=== PATIENT | male | born 1940 | race Caucasian/White ===

== ENCOUNTER 2016-06-18 18:18 | Emergency (ER) | payer MEDICARE, BC ==
--- OUTSIDE RECORDS SUMMARY | 2016-06-18 19:56 | XMS REPORT | Continuity of Care Document ---
:1940 Author Organization [facility] ([facility]) Address [address] [place] [address] Phone [phone] Care Team Providers Name Role Phone Farooq Hdz Primary Care Provider [phone] Source Comments This disclosure is being made pursuant to the Care Everywhere program, applicable federal and state laws, and may not contain all informaitonavailable regarding this patient.[facility] ([facility]) Active Allergies and Adverse Reactions No Known Allergies Current Medications Prescription Sig. Disp. Refills Start Date End Date Status aspirin 81 mg EC take 1 tablet by 11/26/2013 Active tablet oral route every day benazepril-hydrochlort take 2 tablet by 11/26/2013 Active hiazide 20-25 mg per oral route every tablet day glipiZIDE 5 mg tablet take 0.5 tablet 11/26/2013 Active by ORAL route every day before meals carvedilol 25 mg Take 2 tablets 360 tablet 4 11/25/2014 Active tablet (50 mg total) by mouth 2 times daily DOXAZOSIN 8 mg tablet Take 8 mg by 0 12/01/2014 Active mouth daily. furosemide 40 mg Take 40 mg by 0 03/23/2015 Active tablet mouth daily. potassium chloride 10 10 mEq 3 times 0 03/23/2015 Active mEq XR tablet daily. simvastatin 80 mg Take 40 mg by 0 05/04/2015 Active tablet mouth . cloNIDine HCl 0.2 mg Take 1 tablet 180 tablet 1 01/27/2016 Active tablet (0.2 mg total) by mouth 2 times daily. levothyroxine 50 mcg Take 50 mcg by 04/12/2016 Active tablet mouth daily. famotidine 20 mg TAKE ONE TABLET 0 05/16/2016 Active tablet BY MOUTH AT BEDTIME FOR 10 DAYS azithromycin 500 mg TAKE ONE TABLET 0 05/16/2016 Active tablet BY MOUTH EVERY DAY FOR 5 DAYS predniSONE 20 mg TAKE THREE 0 05/16/2016 Active tablet TABLETS BY MOUTH EVERY DAY FOR 3 DAYS THEN DECREASE TO TAKE TWO TABLETS BY MOUTH EVERY DAY FOR 2 DAYS THEN TAKE ONE TABLET BY MARQUITA dextromethorphan-guaiF Take 10 mL by Active ENesin 10-100 mg/5 mL mouth every 4 syrup hours as needed. gabapentin 300 mg Take 300 mg by Active capsule mouth 3 times daily. multivitamin tablet Take 1 tablet by Active mouth daily. Active Problems Problem Noted Date Aortic stenosis 11/25/2014 Hypertension Overview: Formatting of this note may be different from the original. CARDIOVASCULAR PROCEDURES ECHO/MUGA: Echo (Normal EF, Severe LVH, Mild ) - 12/05/2013 Renal Duplex 11/28/2014: No renal artery stenosis STRESS MPI: Normal EF. No ischemia 09/11/2014 Hyperlipidemia Diabetes Most Recent Encounters Date Type Specialty Providers Description 05/19/2016 Office Visit Heart and Vascular Randa Mcgregor MD Dx: Essential hypertension (Primary Dx) Social History Tobacco Use Types Packs/Day Years Used Date Former Smoker Alcohol Use Drinks/Week oz/Week Comments No Last Filed Vital Signs Vital Sign Reading Time Taken Blood Pressure 192/80 05/19/2016 10:04 AM MICROBIOLOGY MANAGER Pulse 62 05/19/2016 10:04 AM MICROBIOLOGY MANAGER Temperature - - Respiratory Rate - - Height 1.702 m (5' 7") 05/19/2016 10:04 AM MICROBIOLOGY MANAGER Weight 97.523 kg (215 lb) 05/19/2016 10:04 AM MICROBIOLOGY MANAGER Body Mass Index 33.67 05/19/2016 10:04 AM MICROBIOLOGY MANAGER Oxygen Saturation - - Plan of Care Date Type Specialty Providers Description 09/08/2016 Appointment Heart and Vascular Randa Mcgregor MD Chief Comp: Patient [address] [place] [address] Visit [phone] (Fax) Health Maintenance Due Date Last Done Comments Hepatitis B Vaccine (1 of 3 - Primary Series) 1940 Tdap Vaccine 07/01/1951 DIABETIC: Cholesterol 1958 Diabetic: Hdl 1958 DIABETIC: Hemoglobin A1C 1958 Diabetic: Ldl 1958 DIABETIC: Microalbumin 1958 DIABETIC: Triglycerides 1958 Td Vaccine 1958 Colonoscopy 1990 Prostate Cancer Screening 1990 Zoster Vaccine 2000 Pneumococcal Vaccine (1 of 2 - PCV13) 2005 DIABETIC: Foot Exam 11/09/2014 DIABETIC: Retinal Eye Exam 11/09/2014 Influenza Vaccine: Seasonal (#1) 10/19/2015 Results from Last 3 Months Not on file
--- NOTE | 2016-06-18 19:59 | ERNOTE ---
Abdominal HPI - Narrative Date of Service: 06/18/16 - General Chief Complaint: Constipation Time Seen by Provider: 06/18/16 19:45 Source: patient Exam Limitations: no limitations - Immun/Allergies/Home Medications Immunizatons: IMMUNIZATION HX Immunizations Up to Date Yes History of Influenza Vaccine Yes Hx Pneumococcal Vaccination Yes Allergies/Adverse Reactions: Allergies atorvastatin calcium [From Lipitor] Adverse Reaction (Mild, Verified 06/18/16 18 :51) intolerance penicillin G Adverse Reaction (Mild, Verified 06/18/16 18:51) from the 60's, passed out simvastatin [From Zocor] Adverse Reaction (Mild, Verified 06/18/16 18:51) intolerance Home Medications: HOME MEDICATIONS Ascorbic Acid [Vitamin C] 500 mg PO DAILY 09/09/14 [Last Taken Unknown] Benazepril/Hydrochlorothiazide [Benazepril-Hctz 20-25 mg Tab] 2 each PO DAILY [Last Taken 09/15/14 05:30] Blood Sugar Diagnostic, Drum [Accu-Chek Compact] 1 each MC DAILY 09/09/14 [Last Taken Unknown] Carvedilol [Coreg] 25 mg PO BID 09/09/14 [Last Taken 09/15/14 05:30] Doxazosin Mesylate [Cardura] 12 mg PO DAILY 09/09/14 [Last Taken 09/15/14 05:30] Multivit-Min/FA/Lycopene/Lut [Centrum Silver Tablet] 1 each PO DAILY 09/09/14 [ Last Taken Unknown] Simvastatin [Zocor] 40 mg PO DAILY 09/09/14 [Last Taken Unknown] glipiZIDE [Glucotrol] 2.5 mg PO DAILY 09/09/14 [Last Taken Unknown] Enoxaparin Sodium [Lovenox] 40 mg SC Q24H #6 disp.syrin 09/19/14 [Last Taken Unknown] Sennosides/Docusate Sodium [Senokot-S] 2 tab PO HS #60 tablet 09/19/14 [Last Taken Unknown] oxyCODONE HCL/ACETAMINOPHEN [Percocet 5 MG/325 MG] 1 tab PO Q6H PRN #60 tablet 09/19/14 [Last Taken Unknown] Docusate Sodium [Colace] 100 mg PO DAILY #30 cap 06/18/16 [Last Taken Unknown] Polyethylene Glycol 3350 [Miralax] 17 gm PO DAILY #2 bottle 06/18/16 [Last Taken Unknown] - History of Present Illness Narrative: Pt. comes in with c/o constipation with no bowel movement for a week or two pt. is unsure of the exact date as he has had some smear of stool occasionally but no passage of solid stool. Pt. attempted to disimpact himself tonight without success. Pt. denies any SOB, CP, NVD, abd pain, fever, recent illness, or dysuria. Review of Systems - Review of Systems Constitutional: Present: no symptoms reported. Absent: recent illness, fever, chills, weakness, fatigue, malaise EYE: Present: no symptoms reported ENT: Present: no symptoms reported Respiratory: Present: no symptoms reported. Absent: shortness of breath, wheezing Cardiology: Present: no symptoms reported. Absent: chest pain, palpitations, edema Gastrointestinal/Abdominal: Present: constipation. Absent: nausea, vomiting, diarrhea, abdominal pain Genitourinary: Present: no symptoms reported Musculoskeletal: Present: no symptoms reported. Absent: back pain, joint pain Skin: Present: no symptoms reported Neurological: Present: no symptoms reported. Absent: headache, dizziness/light- headedness, numbness, tingling All Other Systems: All systems neg except as marked - Patient's Past Medical History Patient History - Medical: Chronic Pain, Diabetes Type 2, Headache Patient History - Cardiac/Respiratory: Hypertension, Hyperlipidemia Patient History - Cancer: No Hx of Cancer Patient History - Surgical Procedures: Cholecystectomy, Colonoscopy, T & A Patient History - Other: None - Family History Father Family History - Medical: , Diabetes Type 2 Insulin Dependent Mother Family History - Medical: , Diabetes Type 2 Family History - Cardiac/Respiratory: Coronary Heart Disease Brother Family History - Medical: , Diabetes Type 2 Insulin Dependent Family History - Cardiac/Respiratory: Coronary Heart Disease Grandmother-Paternal Family History - Medical: , Diabetes Type 2 Insulin Dependent Grandfather-Paternal Family History - Medical: , Diabetes Type 2 Insulin Dependent - Social History Living Situations: home Abuse History: No History of abuse Psych History: No pertinent hx Smoking Status: Former smoker Alcohol Use: occasionally Drug Use: none - Immunizations Immunizations Up to Date: Yes Hx Pneumococcal Vaccination: Yes History of Influenza Vaccine: Yes Physical Exam - Physical Exam General Appearance: Present: wd/wn, alert, no apparent distress Eye Exam: Normal inspection: bilateral, PERRL: bilateral, EOMI: bilateral Ears, Nose, Throat: Present: normal ENT inspection, normal pharynx Neck: Present: normal inspection, nontender. Absent: lymphadenopathy (R), lymphadenopathy (L) Respiratory: Present: no respiratory distress, normal breath sounds, no accessory muscle use, chest nontender, lungs clear Cardiovascular/Chest: Present: regular rate, rhythm, no murmur, normal peripheral pulses Gastrointestinal/Abdominal: Present: normal bowel sounds, nontender, no organomegaly, distended. Absent: McBurney sign, Obturator sign, Roman sign, Psoas sign, mass, hepatomegaly Back Exam: Present: normal inspection, normal range of motion, no CVA tenderness , no vertebral tenderness Extremity Exam: Present: normal inspection, non-tender, normal range of motion, no edema Neurological Exam: Present: alert, oriented, normal mood/affect, no motor/ sensory deficits, shoe polisher II-XII nml as tested, normal cerebellar test Skin Exam: Present: normal color, warm/dry. Absent: pallor, skin rash ED Progress - Vital Signs Patient's Vital Signs:: I have reviewed the patient's vital signs. Vital Signs: Vital Signs 06/18/16 18:45 Temperature 36.8 C Pulse Rate 55 L Respiratory 18 Rate Blood Pressure 191/84 O2 Sat by Pulse 94 Oximetry - X-Ray X-Ray #1 X-Ray: abdomen Interpretation: Reviewed by me X-ray Comments: stool retention no obstructive bowel pattern noted. - Progress/Reassessment Chief Complaint: Constipation Progress:: Improved Progress Note-Subjective: 06/18/16 22:22 Nurse reports x large BM Departure - Departure Clinical Impression: Constipation Qualifiers: Constipation type: slow transit constipation Qualified Code(s): K59.01 - Slow transit constipation Disposition: Home self-care Condition: Good Instructions: Constipation, Adult, [id number] Additional Instructions: Please follow up with primnary provider in 2-3 days if no improvement. Increase water intake. Prescriptions: Docusate Sodium [Colace] 100 mg PO DAILY #30 cap Polyethylene Glycol 3350 [Miralax] 17 gm PO DAILY #2 bottle
[2016-06-18] MEDS ORDERED: MAGNESIUM CITRATE 300 ML BTL PO ONE (21:03)
[2016-06-18] MEDS ORDERED: MAGNESIUM CITRATE 300 ML BTL ONE (21:06)
[2016-06-18 22:14] VITALS: BP 164/82
== END 2016-06-18 22:34 | disposition home or self-care (01) ==
LOC: ER 18:18
DX: K59.01 Slow transit constipation (principal)

== ENCOUNTER 2017-05-15 06:30 | Day surgery (SDC) | payer MEDICARE, BC ==
[~2017-05-15 06:30] MED LIST: RINGER'S SOLUTION,LACTATED 1,000 ML IV PRN
[2017-05-15] MEDS ORDERED: RINGER'S SOLUTION,LACTATED 1,000 ML IV ONE (07:26)
[2017-05-15] MEDS ORDERED: RINGER'S SOLUTION,LACTATED 1,000 ML IV PRN (08:13)
[2017-05-15 09:16] VITALS: BP 164/61
--- NOTE | 2017-05-15 18:47 | OR ---
Operative Report - Dictated Report Narrative: OPERATIVE REPORT DATE OF OPERATION: 05/15/2017 PREOPERATIVE DIAGNOSIS: No recent dedicated colon studies POSTOPERATIVE DIAGNOSIS: 0.5 cm polyp at 15 cm (pathology pending) OPERATION: Colonoscopy with hot biopsy forceps polypectomy at 15 cm SURGEON: Ra Deal MD ANESTHESIA: CHARLES Maldonado CRNA INDICATIONS FOR PROCEDURE: The patient is a 76-year-old male referred by Dr Hdz. His last colonoscopy was in 2007. There is no family history of colon cancer. FINDINGS: 0.5 cm polyp at 15 cm, otherwise normal colonoscopy to the cecum NARRATIVE OF PROCEDURE: The patient was identified in the holding area, and prior to the administration of anesthetic, a multidisciplinary timeout was observed. With the patient in the left lateral position and after the administration of intravenous sedation, the perineum was inspected. There was no evidence of pilonidal disease or skin breakdown. The external appearance of the anus was normal. Sphincter tone was good. The flexible fiberoptic colonoscope was inserted into the rectum which was insufflated with air. The rectal mucosa and submucosal vascular pattern appeared normal, the prep was seen to be complete. The scope was advanced proximally where at 15 cm a pedunculated 0.5 cm polyp was encountered. This was biopsied with hot biopsy forceps and then thoroughly destroyed with electrocautery. The site was seen to be complete and hemostatic. The scope was advanced through the sigmoid colon , up the descending colon, and around the splenic flexure where the triangular haustral architecture of the transverse colon was seen. The scope was advanced across the transverse colon, around the hepatic flexure to the cecum, where the confluence of tenia and the ileocecal valve were identified. The mucosa at this level appeared normal. The scope was then slowly withdrawn in a circular fashion so that all aspects of colonic mucosa were inspected. The colon was normal in course and caliber. The haustral architecture appeared well preserved throughout with no evidence of external compression. The mucosa and submucosal vascular pattern appeared normal, specifically there was no gross evidence to suggest colitis or inflammatory bowel disease and no AV malformations were seen. No shannan diverticular openings were demonstrated. No additional polyps were encountered. The scope was gradually withdrawn to the level of the rectum. As much insufflated air as possible was removed. The scope was withdrawn from the patient and the procedure terminated. The patient tolerated the anesthetic and procedure well without complication and was transferred back to the ambulatory surgery area awake and in stable condition. The patient remained stable throughout a period of postoperative observation. He denied abdominal discomfort, was able to tolerate by mouth intake, and was up without assistance. I shared the operative findings with the patient and his and he was given copies of the photographs which appear in the medical record. He was discharged home with instructions not to engage in hazardous activity today, but may resume normal activity tomorrow, and advance diet as tolerated. He is to continue those medications as listed in the history and physical exam. I made arrangements to contact him with the biopsy reports and will make additional recommendations for treatment and follow-up based upon those results. Reviewed and electronically signed
== END 2017-05-15 06:31 | disposition home or self-care (01) ==
LOC: AMB 06:30
PROVIDERS: ATTEND Surgery
PROC: 0DBE8ZX Excision of Large Intestine, Via Natural or Artificial Opening Endoscopic, Diagnostic (ICD-10-PCS; principal; 2017-05-15)
DX: Z12.11 Encounter for screening for malignant neoplasm of colon (principal); K63.5 Polyp of colon; E11.9 Type 2 diabetes mellitus without complications; I10 Essential (primary) hypertension; E78.5 Hyperlipidemia, unspecified; E03.9 Hypothyroidism, unspecified; Z87.891 Personal history of nicotine dependence; Z68.34 Body mass index [BMI] 34.0-34.9, adult

== ENCOUNTER 2019-12-08 16:13 | Inpatient (IN) ==
[2019-12-08] MEDS ORDERED: MORPHINE SULFATE 2 MG/ML DISP.SYRIN ONE ×2 (16:27→18:06)
[2019-12-08] MEDS ORDERED: MORPHINE SULFATE 2 MG/ML DISP.SYRIN IV ONE (16:32)
[2019-12-08 16:42] LABS: Hemoglobin 12.4 gm/dL (13.5-18.0); Mean Cell Volume 99.7 fl (78-100); Mean Corpuscular Hemoglobin 32.5 pg (27-31); Mean Corpuscular Hgb Conc 32.6 g/dl (32-36); Mean Platelet Volume 9.5 fl (8-11.3); Neutrophil # 3.7 K/mm3 (1.3-6.0); Neutrophil % 63.8 % (42-75.0); Platelet Count 149 K/mm3 (150-450); Red Blood Count 3.81 M/mm3 (4.7-6.0); Red Cell Distribution Width 12.4 % (11.5-14.0); White Blood Count 5.7 K/mm3 (4.0-10.5)
--- NOTE | 2019-12-08 16:43 | ERNOTE ---
Lower Extremity HPI - Narrative Date of Service: 12/08/19 - General Lower Extremities Pain: hip: right Time Seen by Provider: 12/08/19 16:24 Source: patient, family Exam Limitations: no limitations - Immun/Allergies/Home Medications Immunizations: IMMUNIZATION HX Immunizations Up to Date Yes History of Influenza Vaccine No Hx Pneumococcal Vaccination No Allergies/Adverse Reactions: Allergies Allergy/AdvReac Type Severity Reaction Status Date / Time atorvastatin calcium AdvReac Mild intolerance Verified 10/25/19 09:11 [From Lipitor] penicillin G AdvReac Mild from the Verified 10/25/19 09:11 60's, passed out simvastatin [From Zocor] AdvReac Mild intolerance Verified 10/25/19 09:11 Home Medications: HOME MEDICATIONS Acetaminophen [Tylenol] 325 mg PO Q4H PRN 05/08/17 [Last Taken Unknown] Aspirin [Aspirin EC] 81 mg PO DAILY 05/08/17 [Last Taken 10/17/19] Clonidine HCl 0.2 mg PO DAILY 05/08/17 [Last Taken 10/17/19] carvedilol 25 mg tablet 50 mg PO BID tab 10/02/17 [Last Taken 10/18/19] bqxfycei-eul-OV 0.4 mg-calcium 162 mg-iron 18 tp-ycluiwa-nitrla tablet 1 tab PO DAILY 10/02/17 [Last Taken 10/17/19] mecobalamin (vitamin B12) 1,000 mcg disintegrating tablet,sublingual 1,000 mcg SL DAILY #30 tab 10/16/17 [Last Taken 10/17/19] polyethylene glycol 3350 17 gram/dose oral powder See Rx Instructions .ROUTE .COMPLEX #527 g 01/26/18 [Last Taken 10/17/19] ascorbic acid (vitamin C) 1,000 mg tablet 1 g PO DAILY 10/09/18 [Last Taken 10/17/19] ipratropium 0.5 mg-albuterol 3 mg (2.5 mg base)/3 mL nebulization soln 3 ml IH QID PRN #180 ml 01/11/19 [Last Taken Unknown] benazepril 20 mg-hydrochlorothiazide 25 mg tablet 2 tab PO DAILY #180 tab 03/08/19 [Last Taken Unknown] glipizide 5 mg tablet 2.5 mg PO DAILY #45 tab 06/03/19 [Last Taken 10/17/19] doxazosin 8 mg tablet 8 mg PO DAILY #90 tab 09/09/19 [Last Taken 10/18/19] Furosemide [Lasix] 60 mg PO DAILY 09/23/19 [Last Taken 10/17/19] simvastatin 40 mg tablet 40 mg PO DAILY #90 tab 10/11/19 [Last Taken 10/17/19] benazepril 20 mg tablet 40 mg PO DAILY #2 tab 10/16/19 [Last Taken 10/18/19] Levothyroxine Sodium [Synthroid] 1 tab PO DAILY 10/18/19 [Last Taken 10/17/19] - History of Present Illness Narrative: 71-year-old male presents acutely status post a fall onto his right hip. Patient rates the pain at a 9/10. He has significant difficulty moving his right hip. He denies any other acute concerns he notes he did not hit his head, he remembers the episode well, no significant amnesia patient notes he had no prior hip pain prior to this. 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 Patient otherwise denies any acute illness or sicknesses. He notes he otherwise has no significant chest pain, head injury, shortness of breath. Denies any other acute concerns outside of right hip pain. Patient does note he is concerned that he broke his hip. He denies any other significant radiating symptoms, modifying factors include increased pain with motion, better with rest. Denies any significant distal n umbness or tingling. No significant loss of bowel or bladder function status post fall Review of Systems - Review of Systems Constitutional: Absent: fever, weakness EYE: Absent: blurred vision, double vision ENT: Absent: sore throat Respiratory: Absent: shortness of breath, cough Cardiology: Absent: chest pain, syncope Gastrointestinal/Abdominal: Absent: nausea, vomiting, diarrhea, constipation, abdominal pain Genitourinary: Absent: frequency, hematuria Musculoskeletal: Present: joint pain. Absent: back pain Skin: Absent: rash, lesions Neurological: Absent: headache, dizziness/light-headedness, weakness, numbness, tingling, tremors Endocrine: Present: no symptoms reported Hematologic/Lymphatic: Present: no symptoms reported Psych: Present: no symptoms reported All Other Systems: All systems neg except as marked Medical History (Last Reviewed 12/08/19 @ 17:22 by JACY William) Has received influenza vaccination in current influenza season (Acute) Congestive heart failure (Acute) Medicare annual wellness visit, subsequent (Acute) Systolic murmur (Chronic) Onset Date: Unknown Onychomycosis (Chronic) Onset Date: 03/24/11 Hypothyroidism (Chronic) Onset Date: Unknown Hypertension (Chronic) Onset Date: Unknown Resistant, with improved readings Hyperlipidemia (Chronic) Onset Date: Unknown Headache (Chronic) Onset Date: Unknown Diabetes (Chronic) Onset Date: Unknown Hypertension not at goal (Acute) Onset Date: Unknown Constipation (Acute) Onset Date: Unknown Surgical History: Surgical History (Last Reviewed 12/08/19 @ 17:22 by JACY William) H/O arthroplasty (Resolved) Onset Date: Unknown right knee dr harper replaced S/P laparoscopic cholecystectomy (Resolved) Onset Date: Unknown H/O colonoscopy (Resolved) Onset Date: Unknown 2007 normal, 2018 serrated adenoma recheck [address] richardson laceration repair (Resolved) Onset Date: Unknown 1949's History of temporal artery biopsy (Resolved) Onset Date: Unknown 2003 dr richardson normal Hx of tonsillectomy (Resolved) Onset Date: Unknown 1974 Fatty tumor (Resolved) Onset Date: Unknown 1946 right total knee arthroplasty (Resolved) Onset Date: Unknown History of cataract extraction with lens replacement Family History: Family History (Last Reviewed 12/08/19 @ 17:22 by JACY William) Father Colon cancer Diabetes Bleeding disorder Mother Heart disease Myocardial infarction Brother Diabetes Heart disease Mother Diabetes Heart disease Social History: (Last Reviewed 12/08/19 @ 17:22 by JACY William) Social History: skilled nursing: No Marital status: household members: spouse number of children: 4 current occupational status: 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 Highest education level completed: high school graduate Service: No Tobacco: Smoking Status: Former smoker second hand exposure: No Alcohol: alcohol intake: current Alcohol type: beer alcohol intake frequency: a few times a month Substance Use: substance use type: does not use Dietary Habits: caffeine: Yes during the past year weight has: remained stable Exercise: Physical activity type: none Physical activity functional status: independent ambulation frequency: does not exercise Lelia/Moravian: lelia/islam: Faith Physical Exam - Physical Exam General Appearance: Present: wd/wn, alert, mild distress Head Exam: Present: normal inspection, no evidence of injury Eye Exam: Normal inspection: bilateral, PERRL: bilateral, EOMI: bilateral Ears, Nose, Throat: Present: normal ENT inspection, normal pharynx Neck: Present: normal inspection, nontender Respiratory: Present: no respiratory distress, normal breath sounds, no accessory muscle use, chest nontender, lungs clear Cardiovascular/Chest: Present: regular rate, rhythm, no murmur, normal peripheral pulses Peripheral Pulses: N=norm/S=strong/W=weak/B=bound/A=absent: Radial (R): Normal, Radial (L): Normal, Dorsalis-pedis (R): Normal, Dorsalis-pedis (L): Normal Gastrointestinal/Abdominal: Present: normal bowel sounds, nontender, nondistended, soft Extremity Exam: Present: normal except - - Diffuse right hip pain, no obvious wounds or deformity, right lower extremity in a guarded position Neurological Exam: Present: alert, oriented, normal mood/affect, no motor/sensory deficits Skin Exam: Present: normal color, warm/dry Progress - Date and Time Seen: Date and Time: 12/08/19 16:41 Patient presents status post a fall without head trauma not on any blood thinners outside of an 81 mg aspirin with right hip pain. Patient is acute and lucid without significant signs of head trauma, his GCS is 15. Patient denies any acute symptoms outside of right hip pain. He notes that he was brought by EMS status post fall. At this time will obtain basic labs including CBC, CMP, troponin, EKG, chest x-ray as well as right hip films. EKG was obtained new onset A. fib, previous EKG from 2018 did not reveal A. fib. Patient is acutely stable and not complaining of any significant chest pain, chest pressure, shortness of breath. Family does note that he had a mild concerned he has had shortness of breath the past few days. No other sick contacts per patient or family. We will continue to monitor patient's condition he was given a small dose of IV pain medication in the ED that appeared to make him significantly more comfortable. Will adjust treatment plan accordingly. 12/08/19 17:15 Patient checks x-ray is negative for any significant acute findings, hip x-ray reveals a nondisplaced right intertrochanteric femur fracture. Discussed case with orthopedic on-call provider wishes to admit to medicine for further care tomorrow. Call out to medicine team for further discussion towards admittance. Note patient's need for head CT only recommendation to be due to age. He is on the [place] head CT rules cannot recommend for or against head CT. Discussed this with his family at this time they do not wish to proceed with transferring to a facility with CT capabilities. Patient's GCS remains 15 we will continue to monitor for acute mental status changes. Awaiting callback from the medicine team. 12/08/19 17:20 Discussed this case in detail with the medicine team patient will be admitted to Dr. Hernandez with orthopedics to consult. Patient is acutely stable at this time, no significant lab findings that are concerning. They can continue to monitor patient's mental status. He is alert and oriented at this time without significant impairment. Plan to proceed with an inpatient admission for further care. - Results and Orders Patient's Lab Results:: I have reviewed the patient's lab results. Results and Orders: Laboratory Tests 12/08/19 12/08/19 12/08/19 16:35 16:35 16:35 WBC 5.7 Hgb 12.4 L PT 11.4 H INR (Anticoag Therapy) 1.16 H PTT (Dannielle) 24.7 Creatinine 1.18 Troponin I 0.031 - Vital Signs Patient's Vital Signs:: I have reviewed the patient's vital signs. Vital Signs: Vital Signs 12/08/19 16:14 Temperature 36.2 C Pulse Rate 74 Respiratory Rate 17 Blood Pressure 174/106 H O2 Sat by Pulse Oximetry 100 - EKG EKG #1 EKG: atrial fibrillation EKG read: Reviewed by me EKG Comments: Patient appears to be in atrial fibrillation, no significant ST elevation at this time, mild peaking T waves in V3 and V4, possible age-indeterminate atrial septal myocardial infarction, compared to previous EKG atrial fibrillation is no significant change, EKGs were reviewed with physician on staff - X-Ray X-Ray #1 X-Ray: chest Interpretation: Reviewed by me X-ray Comments: Significant cardiomegaly on x-ray, no significant deviation of the trachea, no significant pulmonary congestion, no acute rib fractures X-Ray #2 X-Ray: hip Interpretation: Reviewed by me X-ray Comments: Nondisplaced intertrochanteric right femur fracture - Progress/Reassessment Chief Complaint: Hip Pain/Injury Plan - Plan Plan: Plan to admit for further care with medicine team and consultation orthopedic Departure Clinical Impression: Closed right hip fracture Qualifiers: Encounter type: initial encounter Qualified Code(s): S72.001A - Fracture of unspecified part of neck of right femur, initial encounter for closed fracture - Departure Disposition: Still a patient Condition: Stable Referrals: Farooq Hdz MD [Primary Care Provider] -
[2019-12-08 16:51] LABS: Prothrombin Time (Patient) 11.4 Seconds (9.1-10.7)
[2019-12-08 16:58] LABS: Albumin * 3.8 gm/dl (3.4-5.0); Anion Gap 11.7 mmol/L (6.8-13.8); BUN/Creatinine Ratio 25.4 (9.0-21.6); Bilirubin, Total 0.7 mg/dL (0.0-1.1); Ca. Corrected For Albumin 8.8 mg/dL (8.4-10.2); Carbon Dioxide 28.1 mmol/L (24-32.6); Potassium 3.8 mmol/L (3.4-4.6); Total Protein 7.1 gm/dL (6.2-8.2)
[2019-12-08 17:02] LABS: Troponin I 0.031 ng/mL (0.00-0.10)
[2019-12-08 17:07] LABS: INR 1.16 INR (0.92-1.08); Partial Thrombolplastin Time 24.7 Seconds (24-32)
[2019-12-08 17:16] LABS: Urine Appearance Clear (CLEAR); Urine Bacteria None Seen; Urine Bilirubin Negative (NEGATIVE); Urine Blood Negative /ul (NEGATIVE); Urine Color Yellow; Urine Ketone Negative (NEGATIVE); Urine Nitrite Negative (NEGATIVE); Urine Protein Negative (NEGATIVE); Urine RBC None Seen /hpf (0-5); Urine Specific Gravity 1.025 SP.GR. (1.005-1.030); Urine Urobilinogen Normal (NORMAL); Urine WBC None Seen /hpf (0-5)
[2019-12-08] MEDS ORDERED: MORPHINE SULFATE 2 MG/ML DISP.SYRIN IM ONE (18:07)
[2019-12-08] MEDS ORDERED: hydrALAZINE HCL 20 MG/ML VIAL IV PRN (19:15)
[2019-12-08] MEDS: MORPHINE SULFATE 4 MG/ML SYRG IV PRN ×2 (19:31→20:47)
[2019-12-08] MEDS: NORMAL SALINE 1,000 ML IV PRN (19:33)
--- NOTE | 2019-12-08 19:45 | HP ---
Chief Complaint - Chief Complaint Date of Service: 12/08/19 Time of Service: 19:36 Chief Complaint: right hip pain History of Present Illness: 79-year-old male with history of hypertension and diabetes admitted to the hospital after mechanical fall at home which resulted in a right minimally distracted but not displaced commuted intertrochanteric hip fracture. Patient denies hitting his head. Patient states he felt his chair to hold his dog which resulted in the hip injury. Patient's vital signs aside from an elevated blood pressure were stable in the ER. Lab work showed him to be slightly anemic with a hemoglobin of 12.4 hematocrit 38.0. His skin panel was fairly benign. Urine negative for infection. Cover test negative in the ER. Of note patient was found to be in atrial fibrillation with EKG, patient denies history of arrh ythmia. He has a heart doctor who is helped with his blood pressure but otherwise he is never been treated for atrial fibrillation. He is not on any anticoagulants which would not be started as time due to his upcoming surgery. His heart rate is controlled with a beta-adam. Other than the hip pain patient feels well and is ready for surgery. Patient is currently n.p.o. and will be until after surgery. Patient has fluids running at this time. Patient was admitted to the floor as an inpatient for his upcoming right hip surgery. Medical History (Last Reviewed 12/08/19 @ 19:13 by Kolby Grider RN) Has received influenza vaccination in current influenza season (Acute) Congestive heart failure (Acute) Medicare annual wellness visit, subsequent (Acute) Systolic murmur (Chronic) Onset Date: Unknown Onychomycosis (Chronic) Onset Date: 03/24/11 Hypothyroidism (Chronic) Onset Date: Unknown Hypertension (Chronic) Onset Date: Unknown Resistant, with improved readings Hyperlipidemia (Chronic) Onset Date: Unknown Headache (Chronic) Onset Date: Unknown Diabetes (Chronic) Onset Date: Unknown Hypertension not at goal (Acute) Onset Date: Unknown Constipation (Acute) Onset Date: Unknown Surgical History: Surgical History (Last Reviewed 12/08/19 @ 19:13 by Kolby Grider RN) H/O arthroplasty (Resolved) Onset Date: Unknown right knee dr taveras replaced S/P laparoscopic cholecystectomy (Resolved) Onset Date: Unknown H/O colonoscopy (Resolved) Onset Date: Unknown 2007 normal, 2018 serrated adenoma recheck [address] richardson laceration repair (Resolved) Onset Date: Unknown 1949' History of temporal artery biopsy (Resolved) Onset Date: Unknown 2003 dr richardson normal Hx of tonsillectomy (Resolved) Onset Date: Unknown 1974 Fatty tumor (Resolved) Onset Date: Unknown 1946 right total knee arthroplasty (Resolved) Onset Date: Unknown History of cataract extraction with lens replacement Family History: Family History (Last Reviewed 12/08/19 @ 19:13 by Kolby Grider RN) Father Colon cancer Diabetes Bleeding disorder Mother Heart disease Myocardial infarction Brother Diabetes Heart disease Mother Diabetes Heart disease Social History: (Last Reviewed 12/08/19 @ 19:13 by Kolby Grider RN) Social History: snf: No Marital status: household members: spouse number of children: 4 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 Highest education level completed: high school graduate Service: No Tobacco: Smoking Status: Former smoker second hand exposure: No Alcohol: alcohol intake: current Alcohol type: beer alcohol intake frequency: a few times a month Substance Use: substance use type: does not use Dietary Habits: caffeine: Yes during the past year weight has: remained stable Exercise: Physical activity type: none Physical activity functional status: independent ambulation frequency: does not exercise Lelia/Rastafari: lelia/hindu: Synagogue Review Of Systems (GEN) - Review of Systems Generalized/Overall Review: Absent: Weakness, Chills, Fever EENTM: Present: No Symptoms Reported Respiratory: Present: No Symptoms Reported Cardiac: Present: No Symptoms Reported Abdominal: Present: No Symptoms Reported Musculoskeletal: Present: Joint Pain - Right hip Neurological: Absent: Numbness, Tingling Skin: Present: No Symptoms Reported Endocrine: Present: No Symptoms Reported Immunizations: IMMUNIZATION HX Immunizations Up to Date Yes History of Influenza Vaccine No Hx Pneumococcal Vaccination No Allergies/Adverse Reactions: Allergies Allergy/AdvReac Type Severity Reaction Status Date / Time atorvastatin calcium AdvReac Mild intolerance Verified 12/08/19 19:13 [From Lipitor] simvastatin [From Zocor] AdvReac Mild intolerance Verified 12/08/19 19:13 Home Medications: HOME MEDICATIONS Acetaminophen [Tylenol] 325 mg PO Q4H PRN 05/08/17 [Last Taken Unknown] Aspirin [Aspirin EC] 81 mg PO DAILY 05/08/17 [Last Taken 10/17/19] Clonidine HCl 0.2 mg PO DAILY 05/08/17 [Last Taken 10/17/19] carvedilol 25 mg tablet 50 mg PO BID tab 10/02/17 [Last Taken 10/18/19] lnauapkf-doy-LQ 0.4 mg-calcium 162 mg-iron 18 ex-sosvvsr-eeympn tablet 1 tab PO DAILY 10/02/17 [Last Taken 10/17/19] mecobalamin (vitamin B12) 1,000 mcg disintegrating tablet,sublingual 1,000 mcg SL DAILY #30 tab 10/16/17 [Last Taken 10/17/19] polyethylene glycol 3350 17 gram/dose oral powder See Rx Instructions .ROUTE .COMPLEX #527 g 01/26/18 [Last Taken 10/17/19] ascorbic acid (vitamin C) 1,000 mg tablet 1 g PO DAILY 10/09/18 [Last Taken 10/17/19] ipratropium 0.5 mg-albuterol 3 mg (2.5 mg base)/3 mL nebulization soln 3 ml IH QID PRN #180 ml 01/11/19 [Last Taken Unknown] benazepril 20 mg-hydrochlorothiazide 25 mg tablet 2 tab PO DAILY #180 tab 03/08/19 [Last Taken Unknown] glipizide 5 mg tablet 2.5 mg PO DAILY #45 tab 06/03/19 [Last Taken 10/17/19] doxazosin 8 mg tablet 8 mg PO DAILY #90 tab 09/09/19 [Last Taken 10/18/19] Furosemide [Lasix] 60 mg PO DAILY 09/23/19 [Last Taken 10/17/19] simvastatin 40 mg tablet 40 mg PO DAILY #90 tab 10/11/19 [Last Taken 10/17/19] benazepril 20 mg tablet 40 mg PO DAILY #2 tab 10/16/19 [Last Taken 10/18/19] Levothyroxine Sodium [Synthroid] 1 tab PO DAILY 10/18/19 [Last Taken 10/17/19] Exam - Exam Vital Signs: Vital Signs - Last Taken Temp 36.2 C 12/08/19 16:14 Pulse 98 12/08/19 19:32 Resp 15 12/08/19 18:59 BP 174/99 H 12/08/19 19:32 Pulse Ox 93 12/08/19 18:59 Constitutional: Present: Alert, Oriented x3, Well developed, Elderly ENT Exam: Present: hearing grossly normal Eye Exam: bilateral eye: normal inspection, EOMI Neck: Present: non-tender, supple Respiratory: Present: lungs clear, normal breath sounds Cardiovascular/Chest: Present: regular rate, rhythm, systolic murmur Peripheral Pulses: dorsalis-pedis (R): 2+, dorsalis-pedis (L): 2+ Abdomen: Present: Normal bowel sounds, soft, nontender Extremity: Absent: normal range of motion - pain with minimal motion of right hip. normal cap refill and sensory Skin Exam: Present: normal color, warm/dry Appearance: Present: appropriate appearance, appropriate insight Eye contact: Present: cooperative, good eye contact Thoughts: Present: normal thought pattern, normal mood /affect Diagnostic Studies: Abnormal Lab Results 12/08/19 12/08/19 12/08/19 Range/Units 16:35 16:35 16:35 RBC 3.81 L (4.7-6.0) M/mm3 Hgb 12.4 L (13.5-18.0) gm/dL Hct 38.0 L (42.0-52.0) % MCH 32.5 H (27-31) pg Plt Count 149 L (150-450) K/mm3 Immature Gran % (Auto) 0.50 H (0.001-0.429) % Monocytes % 11.1 H (0.0-9) % Eosinophils % 3.7 H (0.0-3.0) % Lymphocytes # 1.17 L (1.5-3.5) k/mm3 PT 11.4 H (9.1-10.7) Seconds INR (Anticoag Therapy) 1.16 H (0.92-1.08) INR BUN 30 H (6-23) mg/dL BUN/Creatinine Ratio 25.4 H (9.0-21.6) Random Glucose 192 H (70-110) mg/dL Laboratory Results WBC 5.7 K/mm3 (4.0-10.5) 12/08/19 16:35 RBC 3.81 M/mm3 (4.7-6.0) L 12/08/19 16:35 Hgb 12.4 gm/dL (13.5-18.0) L 12/08/19 16:35 Hct 38.0 % (42.0-52.0) L 12/08/19 16:35 MCV 99.7 fl (78-100) 12/08/19 16:35 MCH 32.5 pg (27-31) H 12/08/19 16:35 MCHC 32.6 g/dl (32-36) 12/08/19 16:35 RDW 12.4 % (11.5-14.0) 12/08/19 16:35 Plt Count 149 K/mm3 (150-450) L 12/08/19 16:35 MPV 9.5 fl (8-11.3) 12/08/19 16:35 Immature Gran % (Auto) 0.50 % (0.001-0.429) H 12/08/19 16:35 Immature Gran # (Auto) 0.03 K/mm3 (0.000-0.0310) 12/08/19 16:35 Neutrophils % 63.8 % (42-75.0) 12/08/19 16:35 Lymphocytes % 20.4 % (20-51) 12/08/19 16:35 Monocytes % 11.1 % (0.0-9) H 12/08/19 16:35 Eosinophils % 3.7 % (0.0-3.0) H 12/08/19 16:35 Basophils % 0.5 % (0.0-1.0) 12/08/19 16:35 Nucleated RBC % 0.0 k/mm3 (0-1) 12/08/19 16:35 Neutrophils # 3.7 K/mm3 (1.3-6.0) 12/08/19 16:35 Lymphocytes # 1.17 k/mm3 (1.5-3.5) L 12/08/19 16:35 Monocytes # 0.6 k/mm3 (0.0-1.0) 12/08/19 16:35 Eosinophils # 0.2 k/mm3 (0.0-0.7) 12/08/19 16:35 Absolute Basophils 0.0 k/mm3 (0.0-0.1) 12/08/19 16:35 PT 11.4 Seconds (9.1-10.7) H 12/08/19 16:35 INR (Anticoag Therapy) 1.16 INR (0.92-1.08) H 12/08/19 16:35 PTT (Dannielle) 24.7 Seconds (24-32) 12/08/19 16:35 Sodium 139 mmol/L (132-142) 12/08/19 16:35 Plasma Sodium 140 mmol/L (130-142) 12/08/19 16:35 Potassium 3.8 mmol/L (3.4-4.6) 12/08/19 16:35 Chloride 103 mmol/L (97-106) 12/08/19 16:35 Carbon Dioxide 28.1 mmol/L (24-32.6) 12/08/19 16:35 Anion Gap 11.7 mmol/L (6.8-13.8) 12/08/19 16:35 BUN 30 mg/dL (6-23) H 12/08/19 16:35 Creatinine 1.18 mg/dL (0.4-1.4) 12/08/19 16:35 Est GFR (Non-Af Amer) 63 mL/min (60-130) 12/08/19 16:35 BUN/Creatinine Ratio 25.4 (9.0-21.6) H 12/08/19 16:35 Random Glucose 192 mg/dL (70-110) H 12/08/19 16:35 Calcium 9.0 mg/dL (7.9-10.9) 12/08/19 16:35 Calcium Adj for Albumin 8.8 mg/dL (8.4-10.2) 12/08/19 16:35 Total Bilirubin 0.7 mg/dL (0.0-1.1) 12/08/19 16:35 AST 18 U/L (0-48) 12/08/19 16:35 ALT 32 U/L (19-67) 12/08/19 16:35 Alkaline Phosphatase 79 U/L (50-170) 12/08/19 16:35 Troponin I 0.031 ng/mL (0.00-0.10) 12/08/19 16:35 Total Protein 7.1 gm/dL (6.2-8.2) 12/08/19 16:35 Albumin 3.8 gm/dl (3.4-5.0) 12/08/19 16:35 Urine Color Yellow 12/08/19 17:11 Urine Appearance Clear (CLEAR) 12/08/19 17:11 Urine pH 6.0 pH (5.0-7.0) 12/08/19 17:11 Ur Specific [place] 1.025 SP.GR. (1.005-1.030) 12/08/19 17:11 Urine Protein Negative mg/dL (NEGATIVE) 12/08/19 17:11 Urine Glucose (UA) Negative mg/dL (NEGATIVE) 12/08/19 17:11 Urine Ketones Negative mg/dL (NEGATIVE) 12/08/19 17:11 Urine Blood Negative /ul (NEGATIVE) 12/08/19 17:11 Urine Nitrate Negative (NEGATIVE) 12/08/19 17:11 Urine Bilirubin Negative mg/dl (NEGATIVE) 12/08/19 17:11 Urine Urobilinogen Normal EU/dl (NORMAL) 12/08/19 17:11 Ur Leukocyte Esterase Negative /ul (NEGATIVE) 12/08/19 17:11 Urine RBC None seen /hpf (0-5) 12/08/19 17:11 Urine WBC None seen /hpf (0-5) 12/08/19 17:11 Ur Epithelial Cells None seen /hpf (0-5) 12/08/19 17:11 Urine Bacteria None seen (NONE) 12/08/19 17:11 Urine Culture Comments No culture indicated 12/08/19 17:11 SARS-CoV-2 (PCR) Not detected (NotDetected) 12/08/19 17:22 Assessment/Plan - Narrative Narrative: 79-year-old male admitted to the hospital after mechanical fall resulting in right intertrochanteric hip fracture. Patient undergo surgery tomorrow with Dr. Taveras. Patient made n.p.o., normal saline currently running at 125 an hour. Patient's lab work appropriate. Patient does have atrial fibrillation, how new it is is unknown but we have no record of your prior to today. Heart rate is controlled with beta-adam. Patient will be anticoagulated following his surgery to address this for long-term then. Blood pressure slightly elevated, patient has hydralazine ordered for systolic greater than 170. Morphine ordered for pain management. SCDs for DVT prophylaxis. Sugars to be monitored before meals and at bedtime. Vital signs ordered. Patient cleared for surgery from medical standpoint. Nurse to call questions or concerns. - Assessment/Plan (1) Closed right hip fracture Problem: Acute Qualifiers: Encounter type: initial encounter Qualified Code(s): S72.001A - Fracture of unspecified part of neck of right femur, initial encounter for closed fracture (2) Systolic murmur Problem: Chronic (3) Hypertension Problem: Chronic Qualifiers: (4) Diabetes Problem: Chronic Qualifiers:
[2019-12-08] MEDS: INSULIN LISPRO 100 UNITS/ML VIAL SC SCH (20:22)
[2019-12-08] MEDS: MORPHINE SULFATE 2 MG/ML DISP.SYRIN IV PRN (22:44)
[2019-12-09] MEDS: MORPHINE SULFATE 2 MG/ML DISP.SYRIN IV PRN ×3 (01:55→06:44)
[2019-12-09] MEDS: NORMAL SALINE 1,000 ML IV PRN (03:36)
[2019-12-09] MEDS: INSULIN LISPRO 100 UNITS/ML VIAL SC SCH ×4 (07:27→20:26)
[2019-12-09] MEDS ORDERED: ceFAZolin SODIUM 2 GM in DEXTROSE 5 % IN WATER 50 ML IV PRN ×2 (08:13)
--- NOTE | 2019-12-09 08:19 | CONS ---
HPI - General Date of Service: 12/09/19 Narrative: Michael reports he was in his garage when he sustained a ground-level fall. Patient was unable to get up and ambulate due to severe pain in the right hip. He was brought into the emergency department [facility] and found to have a intertrochanteric hip fracture. He is admitted to Dr. Hernandez's medical service. At this time he reports pain in the right inguinal area but no other complaints of pain. - History of Present Illness Timing/Duration: 24 hours Allergies/Adverse Reactions: Allergies atorvastatin calcium [From Lipitor] Adverse Reaction (Mild, Verified 12/08/19 19:13) intolerance simvastatin [From Zocor] Adverse Reaction (Mild, Verified 12/08/19 19:13) intolerance Home Medications: Home Medications Medication Instructions Recorded Last Taken Acetaminophen [Tylenol] 325 mg PO Q4H PRN 05/08/17 Unknown Aspirin [Aspirin EC] 81 mg PO DAILY 05/08/17 10/17/19 Clonidine HCl 0.2 mg PO DAILY 05/08/17 10/17/19 carvedilol 25 mg tablet 50 mg PO BID tab 10/02/17 10/18/19 qrssesau-fiw-PR 0.4 mg-calcium 162 1 tab PO DAILY 10/02/17 10/17/19 mg-iron 18 vc-ufjcamg-zfeutf tablet mecobalamin (vitamin B12) 1,000 1,000 mcg SL DAILY #30 tab 10/16/17 10/17/19 mcg disintegrating tablet,sublingual polyethylene glycol 3350 17 See Rx Instructions .ROUTE 01/26/18 10/17/19 gram/dose oral powder .COMPLEX #527 g ascorbic acid (vitamin C) 1,000 mg 1 g PO DAILY 10/09/18 10/17/19 tablet ipratropium 0.5 mg-albuterol 3 mg 3 ml IH QID PRN #180 ml 01/11/19 Unknown (2.5 mg base)/3 mL nebulization soln benazepril 20 2 tab PO DAILY #180 tab 03/08/19 Unknown mg-hydrochlorothiazide 25 mg tablet glipizide 5 mg tablet 2.5 mg PO DAILY #45 tab 06/03/19 10/17/19 doxazosin 8 mg tablet 8 mg PO DAILY #90 tab 09/09/19 10/18/19 Furosemide [Lasix] 60 mg PO DAILY 09/23/19 10/17/19 simvastatin 40 mg tablet 40 mg PO DAILY #90 tab 10/11/19 10/17/19 Levothyroxine Sodium [Synthroid] 1 tab PO DAILY 10/18/19 10/17/19 Procedures Administration of wqqcbdcwjw-bzqunqu-bxvwrwmsq, combined (07/24/10) Biopsy of blood vessel (09/30/03) Closure of skin and subcutaneous tissue of other sites (07/24/10) Colonoscopy (05/03/07) Total knee replacement (09/15/14) Medications - Medications Current Medications: Current Medications Hydralazine HCl (Apresoline) 10 mg IV Q4H PRN PRN Reason: Hypertension Stop: 01/07/20 19:16 Last Admin: 12/08/19 19:32 Dose: 10 mg Documented by: Sodium Chloride (Sodium Chloride 0.9%) 1,000 mls @ 125 mls/hr IV .Q8H PRN PRN Reason: HYDRATION Stop: 01/07/20 19:27 Last Admin: 12/09/19 03:36 Dose: 125 mls/hr Documented by: Insulin Human Lispro (Humalog) 0 units SC [facility]; Protocol Stop: 01/07/20 21:01 Last Admin: 12/09/19 07:27 Dose: Not Given Documented by: Morphine Sulfate (Morphine Sulfate) 2 mg IV Q1H PRN PRN Reason: Pain Stop: 01/07/20 20:55 Last Admin: 12/09/19 06:44 Dose: 2 mg Documented by: Physical Examination - Exam Narrative: Michael is currently lying in bed. He is in no acute distress. He answers to questions appropriately. He is lying with right leg externally rotated and shortened. He reports pain with palpation in the inguinal area on the right side. He reports no knee pain. Reports sensation intact light touch in the right lower extremity. He is able to plantarflex and dorsiflex the right ankle. He is palpable posterior tibial pulse x-rays reviewed show minimally displaced right intertrochanteric hip fracture. Vital Signs: Vital Signs - Last Taken Temp 37.1 C 12/09/19 06:36 Pulse 94 12/09/19 06:36 Resp 16 12/09/19 06:36 BP 162/86 H 12/09/19 06:36 Pulse Ox 93 12/09/19 06:36 O2 Oxygen Delivery Method Room Air - Results and Findings: Lab/Microbiology results last 24 hrs: Abnormal/Pending Laboratory Last 24 HRS 12/08/19 12/08/19 12/08/19 16:35 16:35 16:35 RBC 3.81 L Hgb 12.4 L Hct 38.0 L MCH 32.5 H Plt Count 149 L Immature Gran % (Auto) 0.50 H Monocytes % 11.1 H Eosinophils % 3.7 H Lymphocytes # 1.17 L PT 11.4 H INR (Anticoag Therapy) 1.16 H BUN 30 H BUN/Creatinine Ratio 25.4 H Random Glucose 192 H - Assessments/Findings (1) Closed right hip fracture Diagnosis(s): Closed reduction internal fixation with cephalo-medullary implant discussed with patient. Risks of surgery discussed. Will obtain consents. Patient have 2 g of Ancef IV preop. Problem: Acute
[2019-12-09] MEDS ORDERED: MORPHINE SULFATE 4 MG/ML SYRG IV PRN (08:33)
--- NOTE | 2019-12-09 11:48 | ANES ---
Anesthesia Pre Procedure Eval Vitals/Labs: Last Vital Signs Temp 37.2 C 12/09/19 10:08 Pulse 90 12/09/19 10:08 Resp 13 12/09/19 10:08 BP 132/85 12/09/19 10:08 Pulse Ox 91 L 12/09/19 10:08 HOME MEDICATIONS Acetaminophen [Tylenol] 325 mg PO Q4H PRN 05/08/17 [Last Taken Unknown] Aspirin [Aspirin EC] 81 mg PO DAILY 05/08/17 [Last Taken 10/17/19] Clonidine HCl 0.2 mg PO DAILY 05/08/17 [Last Taken 10/17/19] carvedilol 25 mg tablet 50 mg PO BID tab 10/02/17 [Last Taken 10/18/19] dudkbrmx-tzz-CN 0.4 mg-calcium 162 mg-iron 18 yr-peiycvv-sfeauf tablet 1 tab PO DAILY 10/02/17 [Last Taken 10/17/19] mecobalamin (vitamin B12) 1,000 mcg disintegrating tablet,sublingual 1,000 mcg SL DAILY #30 tab 10/16/17 [Last Taken 10/17/19] polyethylene glycol 3350 17 gram/dose oral powder See Rx Instructions .ROUTE .COMPLEX #527 g 01/26/18 [Last Taken 10/17/19] ascorbic acid (vitamin C) 1,000 mg tablet 1 g PO DAILY 10/09/18 [Last Taken 10/17/19] ipratropium 0.5 mg-albuterol 3 mg (2.5 mg base)/3 mL nebulization soln 3 ml IH QID PRN #180 ml 01/11/19 [Last Taken Unknown] benazepril 20 mg-hydrochlorothiazide 25 mg tablet 2 tab PO DAILY #180 tab 03/08/19 [Last Taken Unknown] glipizide 5 mg tablet 2.5 mg PO DAILY #45 tab 06/03/19 [Last Taken 10/17/19] doxazosin 8 mg tablet 8 mg PO DAILY #90 tab 09/09/19 [Last Taken 10/18/19] Furosemide [Lasix] 60 mg PO DAILY 09/23/19 [Last Taken 10/17/19] simvastatin 40 mg tablet 40 mg PO DAILY #90 tab 10/11/19 [Last Taken 10/17/19] Levothyroxine Sodium [Synthroid] 1 tab PO DAILY 10/18/19 [Last Taken 10/17/19] Allergies/Adverse Reactions: Allergies Allergy/AdvReac Type Severity Reaction Status Date / Time atorvastatin calcium AdvReac Mild intolerance Verified 12/08/19 19:13 [From Lipitor] simvastatin [From Zocor] AdvReac Mild intolerance Verified 12/08/19 19:13 - Planned Procedure Planned Procedure: R HIP FRACTURE Medication List Reviewed:: Yes Allergies Verified: Yes Medical History (Last Reviewed 12/09/19 @ 11:43 by Abhinav Jay CRNA) Has received influenza vaccination in current influenza season (Acute) Congestive heart failure (Acute) Medicare annual wellness visit, subsequent (Acute) Systolic murmur (Chronic) Onset Date: Unknown Onychomycosis (Chronic) Onset Date: 03/24/11 Hypothyroidism (Chronic) Onset Date: Unknown Hypertension (Chronic) Onset Date: Unknown Resistant, with improved readings Hyperlipidemia (Chronic) Onset Date: Unknown Headache (Chronic) Onset Date: Unknown Diabetes (Chronic) Onset Date: Unknown Hypertension not at goal (Acute) Onset Date: Unknown Constipation (Acute) Onset Date: Unknown Surgical History (Last Reviewed 12/09/19 @ 11:43 by Abhinav Jay CRNA) H/O arthroplasty (Resolved) Onset Date: Unknown right knee dr harper replaced S/P laparoscopic cholecystectomy (Resolved) Onset Date: Unknown H/O colonoscopy (Resolved) Onset Date: Unknown 2007 normal, 2018 serrated adenoma recheck [address] richardson laceration repair (Resolved) Onset Date: Unknown 1949's History of temporal artery biopsy (Resolved) Onset Date: Unknown 2003 dr richardson normal Hx of tonsillectomy (Resolved) Onset Date: Unknown 1974 Fatty tumor (Resolved) Onset Date: Unknown 1946 right total knee arthroplasty (Resolved) Onset Date: Unknown History of cataract extraction with lens replacement Family History (Last Reviewed 12/09/19 @ 11:43 by Abhinav Jay CRNA) Father Colon cancer Diabetes Bleeding disorder Mother Heart disease Myocardial infarction Brother Diabetes Heart disease Mother Diabetes Heart disease - Family Anesthesia History Family History:: no untoward family reactions to anesthesia, no familial bleeding tendencies, no family history of clotting disorders, no family history of premature - Airway/Neck/Teeth Within Normal Limits:: Yes Teeth Condition: intact Neck Exam: full range of motion Mallampatti Score: 2 Thyromental (T-M) distance: > 6 cm Mandibulo Hyoid distance: > 3 cm - Respiratory Respiratory Physical: rhonchi Smoking Status: Former smoker Sleep Apnea currently treated: No Sleep Apnea by current assessment: No - Cardiovascular Cardiac History: hypertension, hyperlipidemia - distant, pipe Tolerate Activity: Poor Heart Sounds: S1 & S2, Regular - Gastrointestinal NPO since: 2400 - Anesthesia Assessment and Plan ASA Class: PS, III Anesthesia Type Plan: Spinal - INR 12.16
[2019-12-09] MEDS ORDERED: ceFAZolin SODIUM 1 GM VIAL ONE (12:18)
[2019-12-09] MEDS ORDERED: LIDOCAINE HCL 20 ML VIAL ONE (12:35)
[2019-12-09] MEDS ORDERED: fentaNYL CITRATE/PF 50 MCG/ML AMPUL ONE (12:35)
[2019-12-09] MEDS ORDERED: PROPOFOL VIAL IV ONE (12:36)
[2019-12-09] MEDS ORDERED: ONDANSETRON HCL/PF 2 MG/ML VIAL ONE (12:36)
[2019-12-09] MEDS ORDERED: ACETAMINOPHEN 500 MG TABLET PO PRN (14:12)
[2019-12-09] MEDS ORDERED: MAG HYDROX/ALUMINUM HYD/SIMETH 30 ML UDC PO PRN (14:12)
[2019-12-09] MEDS ORDERED: MAGNESIUM HYDROXIDE 30 ML UDC PO PRN (14:12)
[2019-12-09] MEDS ORDERED: ONDANSETRON HCL/PF 2 MG/ML VIAL IV PRN (14:12)
--- NOTE | 2019-12-09 14:12 | OR ---
Operative Report - Dictated Report Narrative: Date: 12/09/2019 Surgeon: Adeel Taveras M.D. Product Evangelist: Matthew Payne PA-C (provided an essential set of skilled educated handset assisted with transfer, positioning, prepping, draping, placement of instruments, insertion of implants, irrigation, closure wounds, and placement of dressings all which could not be performed by the available surgical crew) Preoperative diagnosis: Closed right intertrochanteric femur fracture Postoperative diagnosis: Closed right intertrochanteric femur fracture Operations and procedures: 1. Closed reduction, cephalo-medullary fixation right intertrochanteric femur fracture 2. Intraoperative interpretation of radiographs Anesthesia: Spinal Specimens: None Estimated blood loss: 50 milliliters Retained implants: [employer] Trigen InterTAN 130 degree size 11.5 mm by 20 centimeter nail with 115 millimeter lag screw and 110 millimeter compression screw, with distal locking screw Complications: None Indications for procedure: Mr. Sanchez is a 79-year-old gentleman who injured the right leg after ground- level fall. They were admitted to the hospital after being evaluated in the emergency department. Once the medical provider felt that they were stable for surgical treatment, the risks and benefits alternatives were discussed. The risks of , blood clots, bleeding, infection, nerve/tendon/blood vessel injury, malunion, nonunion, failure of implants, painful implants, arthrosis, and need for additional procedures were discussed. The extremity was marked and consent was obtained on the floor. Procedure: After marking the operative extremity on the floor, the patient was taken to the operating room. A timeout was performed. IV antibiotics consisting of Ancef were administered. A spinal anesthetic was induced by anesthesia, and the patient was then placed onto a fracture table with a well-padded perineal post. The nonoperative leg was placed in a well-padded traction boot in slight extension without any traction with an SCD on the leg. The operative leg was placed in a well-padded traction boot. Longitudinal traction, internal rotation, and flexion were utilized in order to reduce the fracture. Preliminary images were attained utilizing C-arm in both the AP and lateral views. This confirmed that we had obtained adequate visualization of the fracture as well as reduction. Next the hip was then prepped and draped in a standard sterile fashion. Next the guidewire was placed percutaneously proximal to the greater trochanter to denise a starting point at the tip of the greater trochanter centered on the lateral view. This was passed down to the level below the lesser trochanter. A scalpel was utilized in order to dissect down to the greater trochanter in order to place the soft tissue protector down to bone. The entry drill was then placed down the proximal femur to the level of the lesser trochanter. The proper size nail was then selected and impacted into place. The outrigger was utilized in order to confirm the appropriate depth of the nail. Using the alignment device on the outrigger, an incision was made over the lateral femur. Sharp dissection was carried through the iliotibial band down to the proximal femur. The guidewire was placed into the femoral head in a center- center position on AP and lateral views. The tip-apex distance of less than 25 mm combined was obtained. Once we felt that we had placed a guidewire in the appropriate position, it was measured. Next the compression screw site was drilled through the lateral femoral cortex. This was then drilled down to the appropriate depth, again confirming that we are within the confines the bone. The derotational bar was then placed and the lag screw was drilled. The lag screw was then secured in place seating fully ensuring that we were within the confines of the bone. The compression screw was then inserted allowing for compression while releasing the traction on the leg. Using C-arm this was visualized to allow for compression across the fracture site. Once is felt that we had adequately stabilized the intertrochanteric fracture, the distal interlocking screw was placed in a dynamic position. It was confirmed to be the appropriate length and within the nail on both AP and lateral views. The nail was secured allowing for controlled compression and the outrigger was removed. The wounds were then thoroughly irrigated. Final images were obtained. The hip was placed through range of motion and showed no crepitance. The deep fascia was closed with 0 Vicryl, the subcutaneous tissue with 3-0 Vicryl, and the skin was closed with kinjal. Sterile dressings of Xeroform, 4 x 4, and tape were applied. All sponge, sharp, and instrument counts were correct prior to closing the wounds. The patient was then awoken and transferred to the postanesthesia care unit in stable condition.
--- NOTE | 2019-12-09 14:28 | ANES ---
Post Anesthesia Discharge - Transfer of Care Transfer of Care handoff given to nurse: Yes - Discharge from PACU Discharge from PACU when meets criteria: Yes - Discharge to ASU Discharge to ASU-no complications/pt stable: Yes
[2019-12-09] MEDS ORDERED: RINGER'S SOLUTION,LACTATED 1,000 ML IV ONE (14:36)
[2019-12-09] MEDS: HYDROcodone/ACETAMINOPHEN 1 EACH TABLET PO PRN ×2 (16:28→22:39)
[2019-12-09] MEDS: WARFARIN SODIUM 5 MG TABLET PO SCH (16:29)
[2019-12-09] MEDS ORDERED: ALBUTEROL SULFATE/IPRATROPIUM 3 ML NEBU IH PRN (16:38)
[2019-12-09] MEDS ORDERED: ACETAMINOPHEN 325 MG TABLET PO PRN (16:38)
--- NOTE | 2019-12-09 16:43 | PN ---
Subjective - Date and Time Seen Date: 12/09/19 Time: 16:43 Subjective Narrative: Patient is slightly uncomfortable in bed, states his pain has not been well controlled overnight. Otherwise his vital signs have been stable though he did require hydralazine to help control it but otherwise no adverse events overnight. Going for surgery later this afternoon. Objective - Review of Systems Generalized/Overall Review: Reports: No Symptoms Reported EENTM: Reports: No Symptoms Reported Respiratory: Reports: No Symptoms Reported Cardiac: Reports: No Symptoms Reported Abdominal: Reports: No Symptoms Reported Genitourinary Symptoms: Reports: No Symptoms Reported Musculoskeletal Complaints: Reports: Joint Pain Neurological: Reports: No Symptoms Reported Skin: Reports: No Symptoms Reported Endocrine: Reports: No Symptoms Reported - Vitals Vitals: Last Vital Signs Temp 36.5 C 12/09/19 14:53 Pulse 96 12/09/19 16:08 Resp 16 12/09/19 16:08 BP 175/97 H 12/09/19 16:08 Pulse Ox 97 12/09/19 16:08 - Abnormal Lab Findings Abnormal Lab Findings: Abnormal Lab Results 12/08/19 12/08/19 12/08/19 Range/Units 16:35 16:35 16:35 RBC 3.81 L (4.7-6.0) M/mm3 Hgb 12.4 L (13.5-18.0) gm/dL Hct 38.0 L (42.0-52.0) % MCH 32.5 H (27-31) pg Plt Count 149 L (150-450) K/mm3 Immature Gran % (Auto) 0.50 H (0.001-0.429) % Monocytes % 11.1 H (0.0-9) % Eosinophils % 3.7 H (0.0-3.0) % Lymphocytes # 1.17 L (1.5-3.5) k/mm3 PT 11.4 H (9.1-10.7) Seconds INR (Anticoag Therapy) 1.16 H (0.92-1.08) INR BUN 30 H (6-23) mg/dL BUN/Creatinine Ratio 25.4 H (9.0-21.6) Random Glucose 192 H (70-110) mg/dL - Exam Constitutional: Present: Alert, Oriented x3, Elderly Respiratory: Present: lungs clear, normal breath sounds Cardiovascular/Chest: Present: regular rate, rhythm, no murmur Abdomen: Present: Normal bowel sounds, soft, nontender Extremity: Present: normal capillary refill Skin Exam: Present: normal color, warm/dry Appearance: Present: appropriate appearance, appropriate insight Eye contact: Present: cooperative, good eye contact Thoughts: Present: normal thought pattern, normal mood /affect Cauti Physician Documentation - Urinary Catheter Management Urethral (Andrea) Date of Insertion: 12/08/19 Time of Insertion: 16:40 Assessment/Plan Plan Narrative: Plan is for surgery later today. Patient is stable, ready for this. Pain is not well controlled, will increase his morphine to 4 mg q 2hrs. Continue hydralazine as needed. Patient is NPO. Will follow up with patient after surgery, restart his home meds and diet. Nurse to call with questions or concerns. - Problems/Diagnosis (1) Closed right hip fracture Problem: Acute Qualifiers: Encounter type: initial encounter Qualified Code(s): S72.001A - Fracture of unspecified part of neck of right femur, initial encounter for closed fracture (2) Systolic murmur Problem: Chronic (3) Hypertension Problem: Chronic Qualifiers: (4) Diabetes Problem: Chronic Qualifiers:
[2019-12-09] MEDS: LEVOTHYROXINE SODIUM 88 MCG TABLET PO SCH (17:21)
[2019-12-09] MEDS: CLONIDINE HCL 0.2 MG TABLET PO SCH (17:22)
[2019-12-09] MEDS: ENALAPRIL MALEATE 20 MG TABLET PO SCH (17:22)
[2019-12-09] MEDS: HYDROCHLOROTHIAZIDE 25 MG TABLET PO SCH (17:23)
[2019-12-09] MEDS: FUROSEMIDE 20 MG TABLET PO SCH (17:23)
[2019-12-09] MEDS: CARVEDILOL 25 MG TABLET PO SCH (20:22)
[2019-12-09] MEDS: SENNOSIDES/DOCUSATE SODIUM 1 TAB TABLET PO SCH (20:22)
[2019-12-09] MEDS: SIMVASTATIN 40 MG TABLET PO SCH (20:24)
[2019-12-10] MEDS: HYDROcodone/ACETAMINOPHEN 1 EACH TABLET PO PRN ×3 (05:35→19:02)
[2019-12-10 06:31] LABS: Hematocrit 35.7 % (42.0-52.0); Hemoglobin 11.5 gm/dL (13.5-18.0); Mean Cell Volume 99.4 fl (78-100); Mean Corpuscular Hgb Conc 32.2 g/dl (32-36); Mean Platelet Volume 10.1 fl (8-11.3); Platelet Count 113 K/mm3 (150-450); Red Blood Count 3.59 M/mm3 (4.7-6.0); Red Cell Distribution Width 12.5 % (11.5-14.0); White Blood Count 8.8 K/mm3 (4.0-10.5)
[2019-12-10 06:41] LABS: BUN/Creatinine Ratio 23.4 (9.0-21.6); Calcium * 8.6 mg/dL (7.9-10.9); Carbon Dioxide 28.3 mmol/L (24-32.6); Estimated Creat Clear 39.7; Potassium 3.3 mmol/L (3.4-4.6)
[2019-12-10] MEDS: INSULIN LISPRO 100 UNITS/ML VIAL SC SCH ×4 (07:33→21:14)
[2019-12-10] MEDS: LEVOTHYROXINE SODIUM 88 MCG TABLET PO SCH (07:33)
[2019-12-10 08:07] LABS: Prothrombin Time (Patient) 12.5 Seconds (9.1-10.7)
[2019-12-10 08:10] LABS: INR 1.27 INR (0.92-1.08)
[2019-12-10] MEDS: FUROSEMIDE 20 MG TABLET PO SCH (08:24)
[2019-12-10] MEDS: ASPIRIN 81 MG TABLET.DR PO SCH (08:24)
[2019-12-10] MEDS: ASCORBIC ACID 500 MG TABLET PO SCH (08:25)
[2019-12-10] MEDS: CARVEDILOL 25 MG TABLET PO SCH ×2 (08:25→21:13)
[2019-12-10] MEDS: DOXAZOSIN MESYLATE 2 MG TABLET PO SCH (08:25)
[2019-12-10] MEDS: glipiZIDE 5 MG TABLET PO SCH (08:26)
[2019-12-10] MEDS: CLONIDINE HCL 0.2 MG TABLET PO SCH (08:26)
[2019-12-10] MEDS: ENALAPRIL MALEATE 20 MG TABLET PO SCH (08:36)
[2019-12-10] MEDS: HYDROCHLOROTHIAZIDE 25 MG TABLET PO SCH (08:36)
[2019-12-10] MEDS: MECOBALAMIN 1000 MCG SL SCH (08:39)
--- NOTE | 2019-12-10 13:54 | PN ---
Subjective - Date and Time Seen Date: 12/10/19 Time: 12:00 Subjective Narrative: Subjective: Reports mild pain. Was able to get to the chair with therapy. Pain is well-controlled. Tolerating by mouth intake. Denies any nausea or vomiting. Denies calf pain. Slept well. Physical exam: Alert and oriented to person, place and time Right lower extremity: Palpable dorsalis pedis pulse. Sensation grossly intact to light touch. Dressings clean and dry. Able to flex and extend ankle and toes. No excessive drainage. Calf and thigh are soft and nontender. Assessment: Postop day 1 status post right hip intramedullary fixation secondary to intertrochanteric femur fracture. Plan: Doing okay. Continue with physical and occupational therapy weightbearing as tolerated. Continue with anticoagulation -he will need 6 weeks of DVT prophylaxis. 24 hours postoperative prophylactic antibiotics. Pain control with goal to rely on oral medications. Continue bowel regimen. Will need 6 weeks with walker or assitive device to protect joint while ambulating during the recovery process. Discharge planning -okay to discharge from an orthopedic standpoint. Follow-up in 2 to 3 weeks. Keep wound clean and dry and cover with dry gauze and tape. Weightbearing as tolerated with range of motion as tolerated. SHE hose to the operative leg. Ice as needed. Objective - Vitals Vitals: Last Vital Signs Temp 36.7 C 12/10/19 12:00 Pulse 87 12/10/19 12:00 Resp 16 12/10/19 12:00 BP 90/49 12/10/19 12:00 Pulse Ox 97 12/10/19 12:00 - Abnormal Lab Findings Abnormal Lab Findings: Abnormal Lab Results 12/10/19 12/10/19 12/10/19 Range/Units 06:10 06:20 06:20 RBC 3.59 L (4.7-6.0) M/mm3 Hgb 11.5 L (13.5-18.0) gm/dL Hct 35.7 L (42.0-52.0) % MCH 32.0 H (27-31) pg Plt Count 113 L (150-450) K/mm3 PT 12.5 H (9.1-10.7) Seconds INR (Anticoag Therapy) 1.27 H (0.92-1.08) INR Potassium 3.3 L (3.4-4.6) mmol/L BUN 33 H (6-23) mg/dL Creatinine 1.41 H (0.4-1.4) mg/dL Est GFR (Non-Af Amer) 52 L (60-130) mL/min BUN/Creatinine Ratio 23.4 H (9.0-21.6) Random Glucose 194 H (70-110) mg/dL Cauti Physician Documentation - Urinary Catheter Management Urethral (Andrea) Date of Insertion: 12/09/19 Time of Insertion: 16:40 Date of Removal: 12/10/19 Assessment/Plan - Problems/Diagnosis (1) Closed intertrochanteric fracture of right femur with routine healing Problem: Acute Qualifiers: Fracture alignment: nondisplaced Qualified Code(s): S72.144D - Nondisplaced intertrochanteric fracture of right femur, subsequent encounter for closed fracture with routine healing
[2019-12-10] MEDS: WARFARIN SODIUM 5 MG TABLET PO SCH (17:33)
[2019-12-10] MEDS: SENNOSIDES/DOCUSATE SODIUM 1 TAB TABLET PO SCH (21:13)
[2019-12-10] MEDS: SIMVASTATIN 40 MG TABLET PO SCH (21:14)
--- NOTE | 2019-12-10 21:15 | PN ---
Subjective - Date and Time Seen Date: 12/10/19 Time: 11:45 Subjective Narrative: Patient is currently resting comfortably in bed. Examination was completed this evening around 9:30 PM. Patient feels well, denies any pain. No acute events overnight. Patient does have a mild acute kidney injury, restarted his fluids for 1 L to be ran tonight. Otherwise patient feels well and has no concerns. Vital signs are stable. Objective - Review of Systems Generalized/Overall Review: Denies: Weakness, Chills EENTM: Reports: No Symptoms Reported Respiratory: Reports: No Symptoms Reported Cardiac: Reports: No Symptoms Reported Abdominal: Reports: No Symptoms Reported Genitourinary Symptoms: Reports: No Symptoms Reported Musculoskeletal Complaints: Reports: Joint Pain - Minimal right hip pain following surgery, none currently Neurological: Reports: No Symptoms Reported Skin: Reports: No Symptoms Reported Endocrine: Reports: No Symptoms Reported - Vitals Vitals: Last Vital Signs Temp 37.4 C 12/10/19 18:50 Pulse 92 12/10/19 18:50 Resp 20 12/10/19 18:50 BP 138/66 12/10/19 18:50 Pulse Ox 95 12/10/19 18:50 - Abnormal Lab Findings Abnormal Lab Findings: Abnormal Lab Results 12/10/19 12/10/19 12/10/19 Range/Units 06:10 06:20 06:20 RBC 3.59 L (4.7-6.0) M/mm3 Hgb 11.5 L (13.5-18.0) gm/dL Hct 35.7 L (42.0-52.0) % MCH 32.0 H (27-31) pg Plt Count 113 L (150-450) K/mm3 PT 12.5 H (9.1-10.7) Seconds INR (Anticoag Therapy) 1.27 H (0.92-1.08) INR Potassium 3.3 L (3.4-4.6) mmol/L BUN 33 H (6-23) mg/dL Creatinine 1.41 H (0.4-1.4) mg/dL Est GFR (Non-Af Amer) 52 L (60-130) mL/min BUN/Creatinine Ratio 23.4 H (9.0-21.6) Random Glucose 194 H (70-110) mg/dL - Exam Constitutional: Present: Alert, Oriented x3, Elderly ENT Exam: Present: hearing grossly normal. Absent: nasal congestion, nasal drainage Neck: Present: non-tender, supple Respiratory: Present: lungs clear, normal breath sounds Cardiovascular/Chest: Present: regular rate, rhythm, no murmur Abdomen: Present: soft, nontender, nondistended Extremity: Present: normal capillary refill, lower extremity edema - Minimal right lower extremity edema Skin Exam: Present: normal color, warm/dry Appearance: Present: appropriate appearance, appropriate insight Eye contact: Present: cooperative, good eye contact Thoughts: Present: normal thought pattern, normal mood /affect Cauti Physician Documentation - Urinary Catheter Management Urethral (Andrea) Date of Insertion: 12/09/19 Time of Insertion: 16:40 Date of Removal: 12/10/19 Assessment/Plan Plan Narrative: Postop day 1. Overall patient is doing well, feels well. Pain well controlled following surgery. Patient hemoglobin is stable. Patient with mild acute kidney injury, 1 L fluid ordered to be given tonight and will recheck BMP in the morning. Patient is doing well, will continue to progress with therapy as tolerated. Patient will follow with Ortho as directed. Appreciate their help with this case. Blood sugars mildly elevated, continue monitoring before meals and at bedtime. Moderate sliding scale insulin ordered for patient. Restless vital signs are stable. Nurse will call with questions or concerns. - Problems/Diagnosis (1) Closed right hip fracture Problem: Acute Qualifiers: Encounter type: initial encounter Qualified Code(s): S72.001A - Fracture of unspecified part of neck of right femur, initial encounter for closed fracture (2) Systolic murmur Problem: Chronic (3) Hypertension Problem: Chronic Qualifiers: (4) Diabetes Problem: Chronic Qualifiers:
[2019-12-10] MEDS: NORMAL SALINE 1,000 ML IV PRN (21:28)
[2019-12-11] MEDS: HYDROcodone/ACETAMINOPHEN 1 EACH TABLET PO PRN ×5 (02:45→19:16)
[2019-12-11 07:27] LABS: Prothrombin Time (Patient) 12.9 Seconds (9.1-10.7)
[2019-12-11 07:32] LABS: INR 1.32 INR (0.92-1.08)
[2019-12-11] MEDS: LEVOTHYROXINE SODIUM 88 MCG TABLET PO SCH (07:56)
[2019-12-11] MEDS: INSULIN LISPRO 100 UNITS/ML VIAL SC SCH ×4 (07:56→20:21)
[2019-12-11 08:22] LABS: Anion Gap 13.3 mmol/L (6.8-13.8); BUN/Creatinine Ratio 29.4 (9.0-21.6); Calcium * 8.2 mg/dL (7.9-10.9); Carbon Dioxide 26.9 mmol/L (24-32.6); Estimated Creat Clear 39.2; Potassium 3.2 mmol/L (3.4-4.6)
[2019-12-11] MEDS: FUROSEMIDE 20 MG TABLET PO SCH (10:06)
[2019-12-11] MEDS: ASPIRIN 81 MG TABLET.DR PO SCH (10:06)
[2019-12-11] MEDS: HYDROCHLOROTHIAZIDE 25 MG TABLET PO SCH (10:06)
[2019-12-11] MEDS: glipiZIDE 5 MG TABLET PO SCH (10:07)
[2019-12-11] MEDS: DOXAZOSIN MESYLATE 2 MG TABLET PO SCH (10:07)
[2019-12-11] MEDS: ASCORBIC ACID 500 MG TABLET PO SCH (10:07)
[2019-12-11] MEDS: ENALAPRIL MALEATE 20 MG TABLET PO SCH (10:07)
[2019-12-11] MEDS: CARVEDILOL 25 MG TABLET PO SCH ×2 (10:07→20:20)
[2019-12-11] MEDS: CLONIDINE HCL 0.2 MG TABLET PO SCH (10:08)
[2019-12-11] MEDS: MECOBALAMIN 1000 MCG SL SCH (10:08)
[2019-12-11] MEDS ORDERED: WARFARIN SODIUM 7.5 MG TABLET PO SCH (17:00)
[2019-12-11] MEDS: SENNOSIDES/DOCUSATE SODIUM 1 TAB TABLET PO SCH (20:20)
[2019-12-11] MEDS: SIMVASTATIN 40 MG TABLET PO SCH (20:21)
--- NOTE | 2019-12-11 23:14 | PN ---
Subjective - Date and Time Seen Date: 12/11/19 Time: 11:50 Subjective Narrative: Patient feels well today, he denies pain. Well controlled on oral pain meds though he does get "sore" with movement. His vitals are stable. He still has a mild MIKE. Plan is for discharge as soon as he has a placement for SNF with PT. Objective - Review of Systems Generalized/Overall Review: Reports: No Symptoms Reported EENTM: Reports: No Symptoms Reported Respiratory: Reports: No Symptoms Reported Cardiac: Reports: No Symptoms Reported Abdominal: Reports: No Symptoms Reported Musculoskeletal Complaints: Reports: Joint Pain, Muscle Pain Neurological: Reports: No Symptoms Reported Skin: Reports: Other - Incision is C/D/I - Vitals Vitals: Last Vital Signs Temp 36.7 C 12/11/19 21:50 Pulse 85 12/11/19 21:50 Resp 12 12/11/19 21:50 BP 108/70 12/11/19 21:50 Pulse Ox 89 L 12/11/19 21:50 - Abnormal Lab Findings Abnormal Lab Findings: Abnormal Lab Results 12/11/19 12/11/19 Range/Units 06:00 06:39 PT 12.9 H (9.1-10.7) Seconds INR (Anticoag Therapy) 1.32 H (0.92-1.08) INR Potassium 3.2 L (3.4-4.6) mmol/L BUN 42 H (6-23) mg/dL Creatinine 1.43 H (0.4-1.4) mg/dL Est GFR (Non-Af Amer) 51 L (60-130) mL/min BUN/Creatinine Ratio 29.4 H (9.0-21.6) Random Glucose 168 H (70-110) mg/dL - Exam Constitutional: Present: Alert, Oriented x3, Elderly ENT Exam: Present: hearing grossly normal. Absent: nasal congestion, nasal drainage Neck: Present: non-tender, supple Respiratory: Present: lungs clear, normal breath sounds Cardiovascular/Chest: Present: regular rate, rhythm, no murmur Abdomen: Present: soft, nontender, nondistended Extremity: Present: normal range of motion - limited ROM right hip, pain with flexion. mild edema of RLE, leg pain Appearance: Present: appropriate appearance, appropriate insight Eye contact: Present: cooperative, good eye contact Cauti Physician Documentation - Urinary Catheter Management Urethral (Andrea) Date of Insertion: 12/09/19 Time of Insertion: 16:40 Date of Removal: 12/10/19 Assessment/Plan Plan Narrative: Plan is for snf placement with PT. Likely dc tomorrrow. Cleared for dc by ortho. Pain well controlled. Cont with PT. Repeat BMP to monitor kidney function. On coumadin for dxt ppx. Nurse to call with questions or concerns. - Problems/Diagnosis (1) Closed right hip fracture Problem: Acute Qualifiers: Encounter type: initial encounter Qualified Code(s): S72.001A - Fracture of unspecified part of neck of right femur, initial encounter for closed fracture (2) Systolic murmur Problem: Chronic (3) Hypertension Problem: Chronic Qualifiers: (4) Diabetes Problem: Chronic Qualifiers: (5) MIKE (acute kidney injury) Problem: Acute
[2019-12-12] MEDS: HYDROcodone/ACETAMINOPHEN 1 EACH TABLET PO PRN ×3 (06:08→13:18)
[2019-12-12] MEDS: LEVOTHYROXINE SODIUM 88 MCG TABLET PO SCH (06:47)
[2019-12-12] MEDS: INSULIN LISPRO 100 UNITS/ML VIAL SC SCH ×2 (06:48→11:57)
[2019-12-12 06:50] LABS: Anion Gap 11.7 mmol/L (6.8-13.8); BUN/Creatinine Ratio 29.4 (9.0-21.6); Calcium * 8.7 mg/dL (7.9-10.9); Carbon Dioxide 29.5 mmol/L (24-32.6); Estimated Creat Clear 36.6; Potassium 3.2 mmol/L (3.4-4.6); Prothrombin Time (Patient) 16.1 Seconds (9.1-10.7)
[2019-12-12 06:56] LABS: INR 1.66 INR (0.92-1.08)
[2019-12-12] MEDS: DOXAZOSIN MESYLATE 2 MG TABLET PO SCH (08:37)
[2019-12-12] MEDS: ASPIRIN 81 MG TABLET.DR PO SCH (08:38)
[2019-12-12] MEDS: ASCORBIC ACID 500 MG TABLET PO SCH (08:38)
[2019-12-12] MEDS: CLONIDINE HCL 0.2 MG TABLET PO SCH (08:39)
[2019-12-12] MEDS: CARVEDILOL 25 MG TABLET PO SCH (08:39)
[2019-12-12] MEDS: FUROSEMIDE 20 MG TABLET PO SCH (08:40)
[2019-12-12] MEDS: glipiZIDE 5 MG TABLET PO SCH (08:40)
[2019-12-12] MEDS: HYDROCHLOROTHIAZIDE 25 MG TABLET PO SCH (08:40)
[2019-12-12] MEDS: ENALAPRIL MALEATE 20 MG TABLET PO SCH (08:42)
[2019-12-12] MEDS: MECOBALAMIN 1000 MCG SL SCH (08:44)
--- NOTE | 2019-12-12 13:59 | DS ---
(1) Closed right hip fracture Problem: Acute Qualifiers: Encounter type: initial encounter Qualified Code(s): S72.001A - Fracture of unspecified part of neck of right femur, initial encounter for closed fracture (2) Systolic murmur Problem: Chronic (3) Hypertension Problem: Chronic Qualifiers: (4) Diabetes Problem: Chronic Qualifiers: (5) MIKE (acute kidney injury) Problem: Acute Date of Discharge:: 12/12/19 Hospital Course: 79-year-old male who was admitted to the hospital for right hip pain after a ground-level fall which resulted in right femur fracture. Patient was medically stable otherwise and was taken back the following day for closed reduction cephalo-medullary fixation of his right intertrochanteric femur fracture. Patient tolerated surgery well with normal blood loss. Hemoglobin was stable following surgery. Of note patient does have an acute kidney injury still likely due to decreased oral intake. Patient will need to have a creatinine and GFR checked within 1 week. Encourage oral rehydration. Patient will need 6 weeks of DVT prophylaxis, currently on Coumadin. INR goal is between 2 and 3. Her INR is 1.66. Patient's pain is well controlled oral medication. Patient is tolerating therapy here with anterior hip precautions. No other changes to his chronic medications. Procedures Performed: see notes below - Close reduction with cephalo-medullary fixation right intertrochanteric femur fracture Results and Findings: Lab Pending Results 12/08/19 16:35: WBC 5.7, RBC 3.81 L, Hgb 12.4 L, Hct 38.0 L, MCV 99.7, MCH 32.5 H, MCHC 32.6, RDW 12.4, Plt Count 149 L, MPV 9.5, Immature Gran % (Auto) 0.50 H, Immature Gran # (Auto) 0.03, Neutrophils % 63.8, Lymphocytes % 20.4, Monocytes % 11.1 H, Eosinophils % 3.7 H, Basophils % 0.5, Nucleated RBC % 0.0, Neutrophils # 3.7, Lymphocytes # 1.17 L, Monocytes # 0.6, Eosinophils # 0.2, Absolute Basophils 0.0 12/08/19 16:35: PT 11.4 H, INR (Anticoag Therapy) 1.16 H, PTT ([place]) 24.7 12/08/19 16:35: Sodium 139, Plasma Sodium 140, Potassium 3.8, Chloride 103, Carbon Dioxide 28.1, Anion Gap 11.7, BUN 30 H, Creatinine 1.18, Est GFR (Non-Af Amer) 63, BUN/Creatinine Ratio 25.4 H, Random Glucose 192 H, Calcium 9.0, Calcium Adj for Albumin 8.8, Total Bilirubin 0.7, AST 18, ALT 32, Alkaline Phosphatase 79, Troponin I 0.031, Total Protein 7.1, Albumin 3.8 12/08/19 17:11: Urine Color Yellow, Urine Appearance Clear, Urine pH 6.0, Ur Specific [place] 1.025, Urine Protein Negative, Urine Glucose (UA) Negative, Urine Ketones Negative, Urine Blood Negative, Urine Nitrate Negative, Urine Bilirubin Negative, Urine Urobilinogen Normal, Ur Leukocyte Esterase Negative, Urine RBC None seen, Urine WBC None seen, Ur Epithelial Cells None seen, Urine Bacteria None seen, Urine Culture Comments No culture indicated 12/08/19 17:22: SARS-CoV-2 (PCR) Not detected 12/10/19 06:10: PT 12.5 H, INR (Anticoag Therapy) 1.27 H 12/10/19 06:20: WBC 8.8 D, RBC 3.59 L, Hgb 11.5 L, Hct 35.7 L, MCV 99.4, MCH 32.0 H, MCHC 32.2, RDW 12.5, Plt Count 113 L, MPV 10.1 12/10/19 06:20: Sodium 139, Plasma Sodium 141, Potassium 3.3 L, Chloride 102, Carbon Dioxide 28.3, Anion Gap 12.0, BUN 33 H, Creatinine 1.41 H, Est GFR (Non- Af Amer) 52 L, BUN/Creatinine Ratio 23.4 H, Random Glucose 194 H, Calcium 8.6 12/11/19 06:00: Sodium 139, Plasma Sodium 140, Potassium 3.2 L, Chloride 102, Carbon Dioxide 26.9, Anion Gap 13.3, BUN 42 H, Creatinine 1.43 H, Est GFR (Non- Af Amer) 51 L, BUN/Creatinine Ratio 29.4 H, Random Glucose 168 H, Calcium 8.2 12/11/19 06:39: PT 12.9 H, INR (Anticoag Therapy) 1.32 H 12/12/19 06:32: PT 16.1 H, INR (Anticoag Therapy) 1.66 H 12/12/19 06:32: Sodium 138, Plasma Sodium 139, Potassium 3.2 L, Chloride 100, C arbon Dioxide 29.5, Anion Gap 11.7, BUN 45 H, Creatinine 1.53 H, Est GFR (Non-Af Amer) 47 L, BUN/Creatinine Ratio 29.4 H, Random Glucose 186 H, Calcium 8.7 Discharge Location: [facility] Disposition: Inpatient Rehab Facility Condition: Stable Discharge Activity: Activity as tolerated Discharge Diet: Low fat/chol Jail Therapy: Physical Therapy, Occupation Therapy Additional Patient Instructions (free text): To [facility] inpatient rehab for PT and OT therapies to evaluate and treat. Follow up [facility] Orthopedic office appointment on MondayDecember 31 at 9:30am Orthopedics recommendation: Continue with physical and occupational therapy weightbearing as tolerated. Continue with anticoagulation -he will need 6 weeks of DVT prophylaxis. Pain control with goal to rely on oral medications. Continue bowel regimen. Will need 6 weeks with walker or assitive device to protect joint while ambulating during the recovery process. Keep wound clean and dry and cover with dry gauze and tape. Weightbearing as tolerated with range of motion as tolerated. Complete Home Medications List: Complete Home Medication List: Acetaminophen [Tylenol] 325 mg PO Q4H PRN 05/08/17 Aspirin [Aspirin EC] 81 mg PO DAILY 05/08/17 Clonidine HCl 0.2 mg PO DAILY 05/08/17 carvedilol 25 mg tablet 50 mg PO BID tab 10/02/17 [id number] 0.4 mg-calcium 162 mg-iron 18 [id number] tablet 1 tab PO DAILY 10/02/17 mecobalamin (vitamin B12) 1,000 mcg disintegrating tablet,sublingual 1,000 mcg SL DAILY #30 tab 10/16/17 polyethylene glycol 3350 17 gram/dose oral powder See Rx Instructions .ROUTE . COMPLEX #527 g 01/26/18 ascorbic acid (vitamin C) 1,000 mg tablet 1 g PO DAILY 10/09/18 ipratropium 0.5 mg-albuterol 3 mg (2.5 mg base)/3 mL nebulization soln 3 ml IH QID PRN #180 ml 01/11/19 benazepril 20 mg-hydrochlorothiazide 25 mg tablet 2 tab PO DAILY #180 tab 12/20/19 glipizide 5 mg tablet 2.5 mg PO DAILY #45 tab 06/03/19 doxazosin 8 mg tablet 8 mg PO DAILY #90 tab 09/09/19 Furosemide [Lasix] 60 mg PO DAILY 09/23/19 simvastatin 40 mg tablet 40 mg PO DAILY #90 tab 10/11/19 Levothyroxine Sodium [Synthroid] 1 tab PO DAILY 10/18/19 Acetaminophen [Tylenol] 1,000 mg PO Q6H PRN tablet 12/12/19 HYDROcodone/ACETAMINOPHEN [[place] 5-325] 1 ea PO Q3H PRN tab 12/12/19 Hydrochlorothiazide [Hydrodiuril] 50 mg PO DAILY tab 12/12/19 Mag Hydrox/Aluminum Hyd/Simeth [Maalox Plus Suspension] 30 ml PO Q6H PRN udc 12/12/19 Magnesium Hydroxide [Milk Of Magnesia] 30 ml PO DAILY PRN udc 12/12/19 Ondansetron HCl/Pf [Zofran] 4 mg PO Q4H PRN vial 12/12/19 Sennosides/Docusate Sodium [Senokot-S] 2 tab PO HS tab 12/12/19 Warfarin Sodium [Coumadin] 7.5 mg PO DAILY@1700 tab 12/12/19 Forms: Patient Portal Registration
[2019-12-12 15:03] VITALS: BP 98/61
== END 2019-12-12 15:15 | disposition short-term general hospital (02) | DRG 481 ==
LOC: ER 16:13 → MS 18:40
PROVIDERS: ADMIT Family Medicine; ATTEND Internal Medicine
DX: N18.2 Chronic kidney disease, stage 2 (mild); R01.1 Cardiac murmur, unspecified; I48.91 Unspecified atrial fibrillation; W18.39XA Other fall on same level, initial encounter; S72.144A Nondisplaced intertrochanteric fracture of right femur, initial encounter for closed fracture; Z11.59 Encounter for screening for other viral diseases; N17.9 Acute kidney failure, unspecified; I12.9 Hypertensive chronic kidney disease with stage 1 through stage 4 chronic kidney disease, or unspecified chronic kidney disease; E11.22 Type 2 diabetes mellitus with diabetic chronic kidney disease